=== PATIENT | male | born 1950 | race Caucasian/White ===

== ENCOUNTER 2017-10-22 13:07 | Emergency (ER) | payer MEDICARE, OTHER ==
[~2017-10-22] VITALS: Ht 167.6 cm; Wt 111.5 kg
[~2017-10-22 13:07] MED LIST: ASPI-611 PO; ATOR40TA71 PO; CARV-50 PO; COU7.5T PO; FURO40TA4 PO; LISI40TA4 PO; WARF-55 PO
[2017-10-22 13:35] LABS: BASOPHILS % (AUTO) 0.2 % (0-1); EOSINOPHILS # (AUTO) 0.1 X10'3 (0-0.9); EOSINOPHILS % (AUTO) 1.4 % (0-6); HEMATOCRIT 48.4 % (42.0-52.0); HEMOGLOBIN 16.3 g/dl (14.0-17.9); LYMPHOCYTES % (AUTO) 13.4 % (21-51); MEAN CORPUSCULAR HEMOGLOBIN 29.1 PG (27.0-31.0); MEAN CORPUSCULAR HGB CONC 33.6 % (33.0-36.5); MEAN CORPUSCULAR VOLUME 86.5 FL (78-98); MEAN PLATELET VOLUME 8.4 FL (7.4-10.4); MONOCYTES # (AUTO) 0.6 X10'3 (0-0.9); MONOCYTES % (AUTO) 8.2 % (2-12); NEUTROPHILS # (AUTO) 5.8 X10'3 (1.8-7.7); NEUTROPHILS % (AUTO) 76.8 % (42-75); PLATELET COUNT 186 X10'3 (140-440); RED BLOOD COUNT 5.59 X10'6 (4.70-6.10); WHITE BLOOD COUNT 7.6 X10'3 (4.5-11.0)
[2017-10-22 13:46] LABS: INR 1.1 INR; PARTIAL THROMBOPLASTIN TIME 31 SECONDS (22-32)
[2017-10-22 13:51] LABS: ALANINE AMINOTRANSFERASE 20 U/L (12-78); ALBUMIN 3.9 G/DL (3.4-5.0); ALKALINE PHOSPHATASE 64 IU/L (46-116); ANION GAP 9 (8-16); ASPARTATE AMINO TRANSFERASE 14 U/L (10-37); BILIRUBIN,TOTAL 0.5 MG/DL (0.1-1.0); BLOOD UREA NITROGEN 21 MG/DL (7-18); BUN/CREATININE RATIO 19.4 (5.4-32.0); CALCIUM 8.7 MG/DL (8.5-10.1); CHLORIDE 104 MMOL/L (99-107); CREATININE 1.08 MG/DL (0.60-1.10); GLUCOSE 112 MG/DL (70-104); POTASSIUM 4.2 MMOL/L (3.5-5.1); SODIUM 138 MMOL/L (135-145); TOTAL CARBON DIOXIDE 24.9 MMOL/L (24-32); eGFR 68 ML/MIN
[2017-10-22] MEDS ORDERED: MECL-111 PO (16:04)
[2017-10-22 17:22] VITALS: BP 142/64
== END 2017-10-22 18:08 | disposition home or self-care (01) ==
LOC: ER 13:08
DX: R42 Dizziness and giddiness (principal); E78.00 Pure hypercholesterolemia, unspecified; I10 Essential (primary) hypertension; I25.2 Old myocardial infarction; G47.30 Sleep apnea, unspecified; Z95.1 Presence of aortocoronary bypass graft; Z86.73 Personal history of transient ischemic attack (TIA), and cerebral infarction without residual deficits; Z88.1 Allergy status to other antibiotic agents; Z79.82 Long term (current) use of aspirin; Z79.01 Long term (current) use of anticoagulants
CPT/HCPCS: 36415; 70450; 71045; 80053; 84484; 85025; 85610; 85730; 93005; 99285